=== PATIENT | male | born 1975 | race Caucasian/White ===

== ENCOUNTER → 2020-05-21 13:18 | Emergency (ER) | payer OTHER ==
[~2020-05-21 13:18] MED LIST: KETOROLAC TROMETH 60MG/2ML VIAL IM ONE
[2020-05-21 13:30] VITALS: BP 132/88
== END | disposition home or self-care (01) ==
LOC: ER 13:18
DX: S93.601A Unspecified sprain of right foot, initial encounter (principal); X50.1XXA Overexertion from prolonged static or awkward postures, initial encounter; Y93.89 Activity, other specified; Y92.89 Other specified places as the place of occurrence of the external cause; Y99.8 Other external cause status
CPT/HCPCS: 73630; 96372; 99283; J1885